=== PATIENT | male | born 1990 | race Caucasian/White ===

== ENCOUNTER 2016-11-04 23:18 | Emergency (ER) | payer OTHER ==
[~2016-11-04] VITALS: Ht 180.3 cm; Wt 72.0 kg
[~2016-11-04 23:18] MED LIST: AMOX500T PO; Z.0.NO CURRENT MEDS
[2016-11-04 23:21] VITALS: BP 136/86; PULSE 90; RESP 15; TEMP 98.9; O2SAT 97
[2016-11-05] MEDS ORDERED: CEPHALEXIN MONOHYDRATE 500 MG CAP PO ONE
[2016-11-05] MEDS ORDERED: BACT800T5 PO
[2016-11-05] MEDS ORDERED: SULFAMETHOXAZOLE-TRIMETHOPRIM DS 800-160 MG TAB PO ONE
[2016-11-05] MEDS ORDERED: CEPH-460 PO
--- NOTE | 2016-11-05 00:01 | PD ---
HPI Chief Complaint: Skin Problem Time Seen by Provider: 23:45 Travel History International Travel<30 days: No Contact w/Intl Traveler<30days: No Traveled to known affect area: No History of Present Illness HPI 26-year-old male here for evaluation of possible skin infection. The patient points that about a week ago while sleeping at a friend's house he believes he was bitten by bed bugs. He has lesions on his upper and lower extremities that have been itching and then expressing pus. Patient reports history of IVDU, however the sites of his infections currently are not in areas where he injects. He denies fevers or chills. No chest pain or dyspnea. Patient is very concerned about possibly having MRSA. [facility] Social History Alcohol Use: No Tobacco Use: Yes Substance Use: No Allergies-Medications (Allergen,Severity, Reaction): Coded Allergies: No Known Allergies (Unverified , 11/04/16) Reported Meds & Prescriptions Reported Meds & Active Scripts Active Amoxil (Amoxicillin) 500 Mg Cap 1 Tab PO TID 10 Days Reported No Current Meds (Miscellaneous Medication) Misc Review of Systems Except as stated in HPI: all other systems reviewed are Neg Physical Exam Narrative GENERAL: Well-developed, well-nourished, awake, alert, no apparent distress. SKIN: Right posterior elbow, right leg, left leg with several circular areas of erythema which appear to be irritated with mild surrounding warmth, no induration, no purulent drainage. Left forearm with large track narendra without warmth or erythema. No splinter hemorrhages. No Janeway lesions or Osler nodes. ENT: No nasal bleeding or discharge. Mucous membranes pink and moist. NECK: Trachea midline. No JVD. No nuchal rigidity. CARDIOVASCULAR: Regular rate and rhythm. No murmur appreciated. RESPIRATORY: No accessory muscle use. Clear to auscultation. Breath sounds equal bilaterally. GASTROINTESTINAL: Abdomen soft, non-tender, nondistended. MUSCULOSKELETAL: No obvious deformities. No clubbing. No cyanosis. No edema. Right elbow with skin exam as above. There is no joint swelling or swelling of the bursa. There is normal range of motion in the right elbow without tenderness or pain. NEUROLOGICAL: Awake and alert. No obvious cranial nerve deficits. Motor grossly within normal limits. Normal speech. PSYCHIATRIC: Appropriate mood and affect; insight and judgment normal. Data Data Last Documented VS Vital Signs Date Time Temp Pulse Resp B/P Pulse Ox O2 Delivery O2 Flow Rate FiO2 11/04/16 23:21 98.9 90 15 136/86 97 Room Air MDM Medical Decision Making Medical Screen Exam Complete: Yes Emergency Medical Condition: Yes Differential Diagnosis Cellulitis, bacteremia unlikely, septic arthritis unlikely Narrative Course This is a 26-year-old male with history of IVDU who is here for evaluation of possible skin infection. Patient's skin particularly over his right elbow, bilateral forearms, and right leg shows circular areas that appear to be insect bites with surrounding cellulitis. There is no induration or fluctuance. He does have a large track narendra on his left forearm. He denies ever having fevers or chills. There is no murmur on exam. No physical exam findings to suggest bacteremia. Right elbow does show some cellulitis, however there is no swelling. There is normal range of motion of the right elbow. Exam is not indicative of septic arthritis. At this point my plan is to start the patient on oral antibiotics for cellulitis and have him follow-up with a primary care physician this week. He was informed on when to return to the emergency department. I encouraged him to stop using intravenous drugs. He verbalizes understanding and agreement with plan. Diagnosis Primary Impression: Cellulitis Qualified Code: L03.90 - Cellulitis, unspecified cellulitis site Referrals: [facility] 3 days [facility] 1 day Additional Instructions: Take antibiotics as prescribed. Keep wounds clean. Return to the emergency department if worsening symptoms or any other concerns as discussed. Scripts Sulfamethoxazole-Trimethoprim (Bactrim DS)800-160 Mg Tab1 Tab PO BID #28 TAB Ref 0 Prov:Fransisco Whitmore MD 11/05/16 Cephalexin (Keflex)500 Mg Mof551 Mg PO Q8H #30 CAP Ref 0 Prov:Fransisco Whitmore MD 11/05/16 Disposition: 01 DISCHARGE HOME Condition: Stable Fransisco Whitmore MD Nov 05, 2016 00:01
== END 2016-11-05 00:27 | disposition home or self-care (01) ==
LOC: NEPC 23:18
DX: L03.114 Cellulitis of left upper limb (principal); L03.113 Cellulitis of right upper limb; L03.116 Cellulitis of left lower limb; L03.115 Cellulitis of right lower limb; A49.01 Methicillin susceptible Staphylococcus aureus infection, unspecified site; Z72.0 Tobacco use
CPT/HCPCS: 86403; 87070; 87186; 99284